=== PATIENT | male | born 1945 | race African-American/Black ===

== ENCOUNTER 2024-09-22 10:49 | Emergency (ER) | payer MEDICARE, OTHER ==
[~2024-09-22] VITALS: Ht 162.6 cm; Wt 84.1 kg
[2024-09-22 11:01] VITALS: BP 143/85; PULSE 99; RESP 16; TEMP 98.1; O2SAT 99
[2024-09-22] MEDS ORDERED: LIDO-57 TP (11:53)
[2024-09-22] MEDS ORDERED: IBUP-1492 PO (11:53)
[2024-09-22] MEDS ORDERED: METH-659 PO (11:53)
[2024-09-22] MEDS: KETOROLAC TROMETHAMINE 60 MG/2 ML VIAL IM ONE (11:57)
[2024-09-22] MEDS: LIDOCAINE 5% TRANSDERMAL PATCH TD ONE (11:58)
[2024-09-22] MEDS ORDERED: PERCT PO (12:17)
== END 2024-09-22 12:42 | disposition home or self-care (01) ==
LOC: EMS 10:49
DX: M75.101 Unspecified rotator cuff tear or rupture of right shoulder, not specified as traumatic (principal); I10 Essential (primary) hypertension
CPT/HCPCS: 99283; 73030; 96372; J1885